=== PATIENT | female | born 1980 | race Caucasian/White ===

== ENCOUNTER → 2021-07-18 | Outpatient (CLI) | payer OTHER | END | disposition home or self-care (01) | LOC: OR 07:45 → RAD 09:00 → CT 09:35 | DX: M54.16 Radiculopathy, lumbar region (principal) | CPT/HCPCS: 72132 ==

== ENCOUNTER → 2021-08-13 | Outpatient (CLI) | payer OTHER ==
[~2021-08-13] MED LIST: PREMARIN 1.251.25 MG PO; PROTONIX40 MG PO
[2021-08-13 09:42] LABS: HEMOGLOBIN 13.6 gm/dl (12.3-15.3); RED BLOOD COUNT 4.68 M/UL (4.00-5.10); WHITE BLOOD COUNT 6.2 K/UL (4.5-11.0)
[2021-08-13 09:56] LABS: BUN/CREATININE RATIO 13 (0-10)
== END ==
LOC: EDSTATUS 08:00 → OPSV2 08:00
PROVIDERS: Orthopaedic Surgery
DX: Z01.818 Encounter for other preprocedural examination (principal); M51.16 Intervertebral disc disorders with radiculopathy, lumbar region; M47.26 Other spondylosis with radiculopathy, lumbar region
CPT/HCPCS: 71046; 80048; 81001; 85027; 85610; 85730; 87081; 93005

== ENCOUNTER → 2021-08-20 | Outpatient (CLI) | payer OTHER ==
[2021-08-20 12:30] LABS: BUN/CREATININE RATIO 18 (0-10)
== END ==
LOC: LAB 10:57
PROVIDERS: Orthopaedic Surgery
DX: Z01.812 Encounter for preprocedural laboratory examination (principal)
CPT/HCPCS: 36415; 80048; 86850; 86900; 86901

== ENCOUNTER 2021-08-21 05:37 | Inpatient (IN) | payer OTHER ==
[~2021-08-21] VITALS: Ht 157.5 cm; Wt 97.5 kg
[2021-08-21 17:05] LABS: HEMOGLOBIN 11.8 gm/dl (12.3-15.3); RED BLOOD COUNT 4.1 M/UL (4.00-5.10); WHITE BLOOD COUNT 8.4 K/UL (4.5-11.0)
[2021-08-21 17:32] LABS: BUN/CREATININE RATIO 16 (0-10)
[2021-08-22 06:49] LABS: HEMOGLOBIN 11.7 gm/dl (12.3-15.3); RED BLOOD COUNT 4.02 M/UL (4.00-5.10)
[2021-08-22 06:51] LABS: WHITE BLOOD COUNT 11.8 K/UL (4.5-11.0)
[2021-08-22 07:00] LABS: BUN/CREATININE RATIO 12 (0-10)
[2021-08-23 05:00] LABS: HEMOGLOBIN 11.7 gm/dl (12.3-15.3); RED BLOOD COUNT 4.03 M/UL (4.00-5.10); WHITE BLOOD COUNT 10.4 K/UL (4.5-11.0)
[2021-08-23 05:17] LABS: BUN/CREATININE RATIO 9 (0-10)
[2021-08-24 04:47] LABS: HEMOGLOBIN 11.1 gm/dl (12.3-15.3); RED BLOOD COUNT 3.81 M/UL (4.00-5.10); WHITE BLOOD COUNT 12.8 K/UL (4.5-11.0)
[2021-08-24 05:10] LABS: BUN/CREATININE RATIO 14 (0-10)
[2021-08-25 04:36] LABS: HEMOGLOBIN 10.8 gm/dl (12.3-15.3); RED BLOOD COUNT 3.72 M/UL (4.00-5.10); WHITE BLOOD COUNT 10.1 K/UL (4.5-11.0)
[2021-08-25 05:03] LABS: BUN/CREATININE RATIO 11 (0-10)
[2021-08-26 05:05] LABS: HEMOGLOBIN 10.6 gm/dl (12.3-15.3); RED BLOOD COUNT 3.61 M/UL (4.00-5.10); WHITE BLOOD COUNT 8.8 K/UL (4.5-11.0)
[2021-08-26 05:25] LABS: BUN/CREATININE RATIO 13 (0-10)
[2021-08-26] MEDS ORDERED: ROXICODONE5 MG PO (16:44)
== END 2021-08-26 18:32 | disposition home or self-care (01) | DRG 454 ==
LOC: OR 05:37 → CCU 18:34
PROVIDERS: ADMIT Orthopaedic Surgery
PROC: 0SG3071 Fusion of Lumbosacral Joint with Autologous Tissue Substitute, Posterior Approach, Posterior Column, Open Approach (ICD-10-PCS; 2021-08-21)
PROC: 01NB0ZZ Release Lumbar Nerve, Open Approach (ICD-10-PCS; 2021-08-21)
PROC: 01NR0ZZ Release Sacral Nerve, Open Approach (ICD-10-PCS; 2021-08-21)
PROC: 4A11X4G Monitoring of Peripheral Nervous Electrical Activity, Intraoperative, External Approach (ICD-10-PCS; 2021-08-21)
PROC: 0SG30AJ Fusion of Lumbosacral Joint with Interbody Fusion Device, Posterior Approach, Anterior Column, Open Approach (ICD-10-PCS; principal; 2021-08-21 11:15)
DX: M47.896 Other spondylosis, lumbar region (principal); D62 Acute posthemorrhagic anemia; J98.11 Atelectasis; Z20.822 Contact with and (suspected) exposure to COVID-19; M51.16 Intervertebral disc disorders with radiculopathy, lumbar region; R50.9 Fever, unspecified; K21.9 Gastro-esophageal reflux disease without esophagitis; Z90.710 Acquired absence of both cervix and uterus; Z90.49 Acquired absence of other specified parts of digestive tract; Z98.51 Tubal ligation status; Z88.8 Allergy status to other drugs, medicaments and biological substances
CPT/HCPCS: 36415; 71046; 72100; 72110; 76000; 80048; 81001; 85027; 87040; 87086; 97116; 97116-GP-CQ; 97161; 97166; 97530-GP-CQ; 97535; C1713; C1762; C1769; J0690; J0696; J1100; J1170; J1644; J2001; J2250; J2405; J2704; J3010; J3370; J7040; J7120